=== PATIENT | male | born 1980 | race Caucasian/White ===

== ENCOUNTER 2017-08-22 05:24 | Day surgery (SDC) | payer BC ==
[2017-08-22] MEDS ORDERED: Midazolam 1 MG/ML 2 ML SDV IV ONE ×3 (05:25→06:40)
[2017-08-22] MEDS ORDERED: fentaNYL 100 MCG/2 ML SDV IV ONE ×3 (05:25→06:37)
[2017-08-22] MEDS ORDERED: Sodium Chloride 0.9% 10 ML Syringe FLUSH PRN (06:00)
[2017-08-22] MEDS ORDERED: Dextrose 5%-0.45% NaCl 1,000 ML IV SCH (06:00)
[2017-08-22] MEDS ORDERED: fentaNYL 100 MCG/2 ML SDV ONE (06:19)
[2017-08-22] MEDS ORDERED: Midazolam 1 MG/ML 2 ML SDV ONE (06:19)
--- NOTE | 2017-08-22 11:55 | OR ---
DATE: 08/22/2017 PROCEDURE: Esophagogastroduodenoscopy and multiple pinch biopsies. INSTRUMENT USED: GIF-H180 Olympus video panendoscope. PREMEDICATIONS: No oral topical anesthesia used. Fentanyl 100 mcg intravenous, Versed 2 mg intravenous. The procedure was done under pulse oximetry, BP recording, and quality assurance monitor chassis. INDICATION: The patient with persistent heartburn, and throat discomfort, unexplained, and not responsive to medical measures. Esophagogastroduodenoscopy is performed for detection of any active erosive lesions, malignancy also under consideration, to be looked for any evidence of esophageal candidiasis, endoscopic hemostasis therapy if needed. DESCRIPTION OF PROCEDURE: The scope was passed with ease. Adequate visualization of the esophagus was made from proximal to distal areas. No upper esophageal lesions identified. No distal esophageal stricture. No uphill or downhill esophageal varices, no Lavern-Hogan tear. No evidence of erosive esophagitis by [place] criteria. No esophageal polyp or tumor mass identified. Z-line was seen at around 39 cm distal to the oral verge, configuration consistent with grade 1 by ZAP classification. No proximal gastric varices noted. Gastric fundus examination by retroflexion showed no polypoid lesions. No gastric ulcer, malignant mass, or vascular ectasia identified. Duodenal bulb showed no ulcer. Visualized second part of the duodenum was unremarkable. Multiple pinch biopsies were taken from the gastric antrum and proximal body and sent for PyloriTek test for H. pylori, and if negative in an hour, other tissue is to be sent for histopathology. No bleeding was noted from any of the visualized areas at the completion of examination. Photographs were taken of the duodenal bulb, gastric antrum, fundus, and distal esophagus. IMPRESSION: Normal study. The patient tolerated the procedure well. [facility] /[id number]
[2017-08-22 13:08] VITALS: BP 120/76
== END 2017-08-22 08:54 | disposition home or self-care (01) ==
LOC: DL.ENDO 05:24
PROVIDERS: ATTEND Internal Medicine Gastroenterology
DX: R12 Heartburn (principal); E66.09 Other obesity due to excess calories; K21.9 Gastro-esophageal reflux disease without esophagitis; F41.1 Generalized anxiety disorder; L40.9 Psoriasis, unspecified; Z88.0 Allergy status to penicillin; Z88.1 Allergy status to other antibiotic agents; Z88.8 Allergy status to other drugs, medicaments and biological substances
CPT/HCPCS: 43239; 87077; J2250; J3010; J7042

== ENCOUNTER 2017-11-02 16:46 | Emergency (ER) | payer BC ==
--- NOTE | 2017-11-02 17:04 | EDM.PDOC ---
ED HPI GENERAL MEDICAL PROBLEM - General Chief Complaint: Lower Extremity Injury/Pain Stated Complaint: RT KNEE, ? INFECTION Time Seen by Provider: 11/02/17 16:50 Source of Information: Reports: Patient, RN, RN Notes Reviewed History Limitations: Reports: No Limitations - History of Present Illness INITIAL COMMENTS - FREE TEXT/NARRATIVE: Pt presents to the ER with c/o increased stiffness and pain in the right knee since yesterday. He states he has a history of psoriatic arthritis. He states he has been taking Stelara for the past few months, as well as has been restarted on Methotrexate. 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 He states he called his Rheumatology doctor at [facility] in [place] and was instructed to come to the ER. Onset: Gradual Onset Date: 11/01/17 Duration: Getting Worse Location: Reports: Lower Extremity, Right Quality: Reports: Ache, Other (stiff) Severity: Moderate Improves with: Reports: None Worsens with: Reports: None Associated Symptoms: Reports: No Other Symptoms Right Knee Pain Score (Numeric/FACES): 7 - Related Data Allergies Allergy/AdvReac Type Severity Reaction Status Date / Time capsaicin Allergy Hives Verified 11/02/17 16:54 cyclobenzaprine Allergy Hives Verified 11/02/17 16:54 [From Flexeril] diclofenac Allergy Hives Verified 11/02/17 16:54 Penicillins Allergy Rash Verified 11/02/17 16:54 Home Meds: Home Meds Amitriptyline [Elavil] 25 mg PO DAILY 08/20/17 [History] Multivitamin [Multi-Vitamin Daily] 1 tab PO DAILY 08/20/17 [History] Nystatin [Nystatin] 1 unit TOP ASDIRECTED 08/20/17 [History] Pantoprazole Sodium [Pantoprazole Sodium] 40 mg PO BID 08/20/17 [History] Folic Acid 1 mg PO DAILY 11/02/17 [History] Meloxicam 7.5 mg PO DAILY 11/02/17 [History] Methotrexate 2 oz PO WEEKLY 11/02/17 [History] Ustekinumab [Stelara] 1 injection IM ASDIRECTED 11/02/17 [History] Past Medical History HEENT History: Reports: Impaired Vision Cardiovascular History: Reports: None Respiratory History: Reports: Bronchitis, Recurrent Gastrointestinal History: Reports: GERD, Irritable Bowel Syndrome Genitourinary History: Reports: None Musculoskeletal History: Reports: Arthritis Other Musculoskeletal History: Trigger finger. Patellofemoral syndrome bilateral excessive Lateral pressure patella. Bilateral chronic knee pain Neurological History: Reports: None Psychiatric History: Reports: None Endocrine/Metabolic History: Reports: None Hematologic History: Reports: None Immunologic History: Reports: None, Other (See Below) Oncologic (Cancer) History: Reports: None Dermatologic History: Reports: Psoriasis Other Dermatologic History: rosacea - Infectious Disease History Infectious Disease History: Reports: None - Past Surgical History Head Surgeries/Procedures: Reports: None HEENT Surgical History: Reports: Adenoidectomy, Tonsillectomy Other HEENT Surgeries/Procedures: T&A Respiratory Surgical History: Reports: None GI Surgical History: Reports: Colonoscopy, EGD Male Surgical History: Reports: Vasectomy Other Male Surgeries/Procedures: Scrotal fistula repair x3. Vasectomy. Sperm granuloma. Chronic epididymitis Musculoskeletal Surgical History: Reports: Arthroscopic Procedure Other Musculoskeletal Surgeries/Procedures:: Hand finger trigger release. Left knee arthroscopy lateral retinacular. Social & Family History - Family History Family Medical History: Noncontributory - Tobacco Use Smoking Status *Q: Current Every Day Smoker Years of Tobacco use: 16 Packs/Tins Daily: 1 Used Tobacco, but Quit: No Second Hand Smoke Exposure: Yes - Caffeine Use Caffeine Use: Reports: Energy Drinks Other Caffeine Use: 2 cans - Alcohol Use Days Per Week of Alcohol Use: 0 - Recreational Drug Use Recreational Drug Use: No Review of Systems - Review of Systems Review Of Systems: ROS reveals no pertinent complaints other than HPI. ED EXAM, GENERAL - Physical Exam Exam: See Below Exam Limited By: No Limitations General Appearance: Alert, WD/WN, Moderate Distress Eye Exam: Bilateral Eye: EOMI, Normal Inspection, PERRL Ears: Normal External Exam, Hearing Grossly Normal Nose: Normal Inspection Throat/Mouth: Normal Inspection, Normal Voice, No Airway Compromise Head: Atraumatic, Normocephalic Neck: Normal Inspection, Supple, Non-Tender, Full Range of Motion Respiratory/Chest: No Respiratory Distress, Lungs Clear, Normal Breath Sounds, No Accessory Muscle Use, Chest Non-Tender Cardiovascular: Normal Peripheral Pulses, Regular Rate, Rhythm, No Edema, No Gallop, No JVD, No Murmur, No Rub Peripheral Pulses: 2+: Radial (L), Radial (R), Dorsalis Pedis (L), Dorsalis Pedis (R) GI/Abdominal: Normal Bowel Sounds, Soft, Non-Tender, No Distention, No Abnormal Bruit (Male) Exam: Deferred Rectal (Males) Exam: Deferred Back Exam: Normal Inspection, Full Range of Motion, NT Extremities: No Pedal Edema, Normal Capillary Refill, Leg Pain (right), Limited Range of Motion (right leg/knee), Other (swelling above right knee). No: Increased Warmth Neurological: Alert, Oriented, CN II-XII Intact, Normal Cognition, Normal Reflexes, No Motor/Sensory Deficits. No: Normal Gait Psychiatric: Normal Mood, Flat Affect Skin Exam: Warm, Dry, Intact, Normal Color, No Rash Lymphatic: No Adenopathy Course - Vital Signs Last Recorded V/S: Last Vital Signs Temp 98.2 F 11/02/17 17:05 Pulse 103 H 11/02/17 17:05 Resp 16 11/02/17 17:05 BP 150/87 H 11/02/17 17:05 Pulse Ox 100 11/02/17 17:05 - Orders/Labs/Meds Labs: Laboratory Tests 11/02/17 11/02/17 11/02/17 Range/Units 17:15 17:15 17:15 WBC 12.1 H (5.0-10.0) 10^3/uL RBC 4.69 (4.6-6.2) 10^6/uL Hgb 15.2 (14.0-18.0) g/dL Hct 42.8 (40.0-54.0) % MCV 91.3 (80-100) fL MCH 32.4 (27.0-34.0) pg MCHC 35.5 H (33.0-35.0) g/dL Plt Count 293 (150-450) 10^3/uL Neut % (Auto) 55.4 (42.2-75.2) % Lymph % (Auto) 33.5 (20.5-50.1) % [place] % (Auto) 9.2 H (2-8) % Eos % (Auto) 1.7 (1.0-3.0) % Baso % (Auto) 0.2 (0.0-1.0) % ESR 14 (0-15) mm/hr Sodium 136 (135-145) mmol/L Potassium 3.9 (3.6-5.0) mmol/L Chloride 105 (101-111) mmol/L Carbon Dioxide 23.0 (21.0-31.0) mmol/L Anion Gap 11.9 BUN 12 (7-18) mg/dL Creatinine 1.0 (0.6-1.3) mg/dL Est Cr Clr Drug Dosing 97.85 mL/min Estimated GFR (MDRD) > 60 BUN/Creatinine Ratio 12.00 Glucose 77 (74-105) mg/dL Calcium 8.7 (8.4-10.2) mg/dl Total Bilirubin 0.3 (0.2-1.0) mg/dL AST 33 (10-42) IU/L ALT 52 (10-60) IU/L Alkaline Phosphatase 54 (42-121) IU/L C-Reactive Protein < 0.5 (0.0-1.3) mg/dL Total Protein 6.8 (6.7-8.2) g/dl Albumin 3.4 (3.2-5.5) g/dl Globulin 3.4 Albumin/Globulin Ratio 1.00 Departure - Departure Time of Disposition: 18:10 Disposition: Home, Self-Care 01 Condition: Fair Clinical Impression: Psoriatic arthritis Knee pain, acute Qualifiers: Laterality: right Qualified Code(s): M25.561 - Pain in right knee - Discharge Information Instructions: Muscle Strain, [id number]-[id number], Joint Pain, Ioox-of-Yedx, Knee Pain , [id number] Forms: ED Department Discharge Additional Instructions: RX: Dwight Follow up with Rheumatology on Sunday Elevate, rest, passive movement exercises, ice
[2017-11-02 17:10] VITALS: BP 150/87
[2017-11-02 17:39] LABS: CHLORIDE,CL 105 mmol/L (101-111); SODIUM,NA 136 mmol/L (135-145)
== END 2017-11-02 18:34 | disposition home or self-care (01) ==
LOC: DL.ED 16:46
DX: L40.50 Arthropathic psoriasis, unspecified (principal); M25.561 Pain in right knee; F17.210 Nicotine dependence, cigarettes, uncomplicated; Z88.8 Allergy status to other drugs, medicaments and biological substances; Z88.0 Allergy status to penicillin; Z79.899 Other long term (current) drug therapy
CPT/HCPCS: 36415; 80053; 85025; 85651; 86140; 99282

== ENCOUNTER 2020-08-21 12:37 | Emergency (ER) | payer BC ==
[2020-08-21 12:59] VITALS: BP 149/96; PULSE 99
[2020-08-21 14:52] LABS: ANION GAP 11.2 mEq/L (7-13); CHLORIDE,CL 100 mmol/L (98-107); SODIUM,NA 136 mmol/L (136-145)
--- NOTE | 2020-08-21 14:59 | EDM.PDOC ---
ED HPI GENERAL MEDICAL PROBLEM - General Chief Complaint: ENT Problem Stated Complaint: THROAT PROBLEMS SWOLLEN WHITE BLOODY Time Seen by Provider: 08/21/20 13:50 Source of Information: Reports: Patient History Limitations: Reports: No Limitations - History of Present Illness INITIAL COMMENTS - FREE TEXT/NARRATIVE: Patient presents to the ER with complaint of throat pain that began 2 weeks ago. The pain is mostly in the throat, some on tongue/palate. Razor bladers feeling--some burning sensation. It is worst at night that it wakes him up. His throat is dry. It hurts to suck on a cigarette, smokes 1 pack per day. He was begun on Taltz that was begun 5 months ago. He was started on steroids and Z- Pack on Sunday and it is getting worse. He has body aches always but worse lately. Decreased appetite. No fever, chills, nausea, vomiting an diarrhea. Onset: Gradual Duration: Getting Worse Location: Reports: Other (throat) Quality: Reports: Ache Severity: Severe Improves with: Reports: None Worsens with: Reports: None Associated Symptoms: Reports: No Other Symptoms Throat Pain Score (Numeric/FACES): 6 - Related Data Allergies Allergy/AdvReac Type Severity Reaction Status Date / Time capsaicin Allergy Hives Verified 11/02/17 16:54 cyclobenzaprine Allergy Hives Verified 11/02/17 16:54 [From Flexeril] diclofenac Allergy Hives Verified 11/02/17 16:54 Penicillins Allergy Rash Verified 11/02/17 16:54 Home Meds: Home Meds Amitriptyline [Elavil] 50 mg PO DAILY 08/20/17 [History] Pantoprazole Sodium 40 mg PO BID 08/20/17 [History] Folic Acid 1 mg PO DAILY 11/02/17 [History] Methotrexate 7 tab PO WEEKLY 11/02/17 [History] Ixekizumab [Taltz Autoinjector (2 Pack)] 80 mg PO ASDIRECTED 08/21/20 [History] oxyCODONE HCl/Acetaminophen [Endocet 10-325 mg Tablet] 1 tab PO Q6H PRN 08/21/20 [History] Past Medical History HEENT History: Reports: Impaired Vision Cardiovascular History: Reports: None Respiratory History: Reports: Bronchitis, Recurrent Gastrointestinal History: Reports: GERD, Irritable Bowel Syndrome Genitourinary History: Reports: None Musculoskeletal History: Reports: Arthritis, Other (See Below) Other Musculoskeletal History: Trigger finger. Patellofemoral syndrome bilateral excessive Lateral pressure patella. Bilateral chronic knee pain. psoriatic arthritis Neurological History: Reports: None Psychiatric History: Reports: None Endocrine/Metabolic History: Reports: None Hematologic History: Reports: None Immunologic History: Reports: None, Other (See Below) Oncologic (Cancer) History: Reports: None Dermatologic History: Reports: Psoriasis Other Dermatologic History: rosacea - Infectious Disease History Infectious Disease History: Reports: None - Past Surgical History Head Surgeries/Procedures: Reports: None HEENT Surgical History: Reports: Adenoidectomy, Tonsillectomy Other HEENT Surgeries/Procedures: T&A Respiratory Surgical History: Reports: None GI Surgical History: Reports: Colonoscopy, EGD Male Surgical History: Reports: Vasectomy Other Male Surgeries/Procedures: Scrotal fistula repair x3. Vasectomy. Sperm granuloma. Chronic epididymitis Musculoskeletal Surgical History: Reports: Arthroscopic Procedure Other Musculoskeletal Surgeries/Procedures:: Hand finger trigger release. Left knee arthroscopy lateral retinacular. Social & Family History - Family History Family Medical History: No Pertinent Family History - Tobacco Use Tobacco Use Status *Q: Current Every Day Tobacco User Years of Tobacco use: 20 Packs/Tins Daily: 1 - Caffeine Use Caffeine Use: Reports: Energy Drinks Other Caffeine Use: 2 cans - Recreational Drug Use Recreational Drug Use: No ED ROS ENT - Review of Systems Review Of Systems: Comprehensive ROS is negative, except as noted in HPI. ED EXAM, ENT - Physical Exam Exam: See Below Exam Limited By: No Limitations General Appearance: Alert, WD/WN, No Apparent Distress Eye Exam: Bilateral Eye: EOMI, Normal Inspection, PERRL Ears: Normal External Exam, Normal Canal, Hearing Grossly Normal, Normal TMs Nose: Normal Inspection, Normal Mucousa, No Blood Mouth/Throat: Other (beefy red uvula/white with white uvula. Geographic tongue. ) Head: Atraumatic, Normocephalic Neck: Normal Inspection, Supple, Non-Tender, Full Range of Motion Respiratory/Chest: No Respiratory Distress, Lungs Clear, Normal Breath Sounds, No Accessory Muscle Use, Chest Non-Tender Cardiovascular: Normal Peripheral Pulses, Regular Rate, Rhythm, No Edema, No Gallop, No JVD, No Murmur, No Rub GI/Abdominal: Normal Bowel Sounds, Soft, Non-Tender, No Organomegaly, No Distention, No Abnormal Bruit, No Mass (Male) Exam: Deferred Rectal (Males) Exam: Deferred Back: Normal Inspection, Full Range of Motion Extremities: Normal Inspection, Normal Range of Motion, Non-Tender, No Pedal Edema, Normal Capillary Refill Neurological: Alert, Oriented, CN II-XII Intact, Normal Cognition, Normal Gait, Normal Reflexes, No Motor/Sensory Deficits Psychiatric: Normal Affect, Normal Mood Skin: Warm, Dry, Intact, Normal Color, No Rash Lymphatic: No Adenopathy Course - Vital Signs Last Recorded V/S: Last Vital Signs Temp 97.9 F 08/21/20 12:54 Pulse 99 08/21/20 12:54 Resp 16 08/21/20 12:54 BP 149/96 H 08/21/20 12:54 Pulse Ox 100 08/21/20 12:54 - Orders/Labs/Meds Orders: Active Orders 24 hr Category Date Time Status COMPREHENSIVE METABOLIC PN,CMP [CHEM] Stat Lab 08/21/20 13:31 Results CULTURE STREP A CONFIRMATION [RM] Stat Lab 08/21/20 12:51 Results FOLIC ACID [CHEM] Stat Lab 08/21/20 13:31 Results STREP SCRN A RAPID W CULT CONF [RM] Stat Lab 08/21/20 12:51 Results VITAMIN B12 [CHEM] Stat Lab 08/21/20 13:31 Results Labs: Laboratory Tests 08/21/20 08/21/20 08/21/20 Range/Units 13:31 13:31 13:31 WBC 12.2 H (5.0-10.0) 10^3/uL RBC 4.96 (4.6-6.2) 10^6/uL Hgb 16.6 (14.0-18.0) g/dL Hct 47.3 (40.0-54.0) % MCV 95.4 D (80-100) fL MCH 33.5 (27.0-34.0) pg MCHC 35.1 H (33.0-35.0) g/dL Plt Count 339 (150-450) 10^3/uL Neut % (Auto) 70.7 (42.2-75.2) % Lymph % (Auto) 22.1 (20.5-50.1) % [place] % (Auto) 6.7 (2-8) % Eos % (Auto) 0.3 L (1.0-3.0) % Baso % (Auto) 0.2 (0.0-1.0) % Sodium 136 (136-145) mmol/L Potassium 4.2 (3.5-5.1) mmol/L Chloride 100 (98-107) mmol/L Carbon Dioxide 29 (21-32) mmol/L Anion Gap 11.2 (7-13) mEq/L BUN 11 (7-18) mg/dL Creatinine 0.98 (0.70-1.30) mg/dL Est Cr Clr Drug Dosing 96.94 mL/min Estimated GFR (MDRD) > 60 BUN/Creatinine Ratio 11.2 (No establ ref range) Glucose 91 (74-99) mg/dL Calcium 9.3 (8.5-10.1) mg/dL Iron 178 H (65-175) ug/dL TIBC 480 H (250-450) ug/dL % Saturation 37.1 (20.0-50.0) % Total Bilirubin 0.3 (0.2-1.0) mg/dL AST 18 (15-37) U/L ALT 66 H (16-63) U/L Alkaline Phosphatase 76 (46-116) U/L Total Protein 7.3 (6.4-8.2) g/dL Albumin 3.3 L (3.4-5.0) g/dL Globulin 4.0 Albumin/Globulin Ratio 0.83 Vitamin B12 1074 H (193-986) pg/mL Departure - Departure Time of Disposition: 14:58 Disposition: Home, Self-Care 01 Condition: Fair Clinical Impression: Xerostomia, Oral candidiasis - Discharge Information *PRESCRIPTION DRUG MONITORING PROGRAM REVIEWED*: No *COPY OF PRESCRIPTION DRUG MONITORING REPORT IN PATIENT JESSICA: No Instructions: Oral Thrush, Adult, [id number] Forms: ED Department Discharge Additional Instructions: Rx: Nystatin, swish gargle and swallow 4 times daily for 10 days Diflucan take as directed Drink plenty of water Try to stop smoking Follow-up with your primary care provider next week Return to the ER with any worsening of symptoms Sepsis Event Note (ED) - Evaluation Sepsis Screening Result: No Definite Risk - Focused Exam Vital Signs: Vital Signs Temp Pulse Resp BP Pulse Ox 08/21/20 12:54 97.9 F 99 16 149/96 H 100 - My Orders Last 24 Hours: My Active Orders 08/21/20 12:51 CULTURE STREP A CONFIRMATION [RM] Stat STREP SCRN A RAPID W CULT CONF [RM] Stat 08/21/20 13:31 COMPREHENSIVE METABOLIC PN,CMP [CHEM] Stat FOLIC ACID [CHEM] Stat VITAMIN B12 [CHEM] Stat - Assessment/Plan Last 24 Hours: My Active Orders 08/21/20 12:51 CULTURE STREP A CONFIRMATION [RM] Stat STREP SCRN A RAPID W CULT CONF [RM] Stat 08/21/20 13:31 COMPREHENSIVE METABOLIC PN,CMP [CHEM] Stat FOLIC ACID [CHEM] Stat VITAMIN B12 [CHEM] Stat
== END 2020-08-21 15:16 | disposition home or self-care (01) ==
LOC: DL.ED 12:37
DX: K11.7 Disturbances of salivary secretion (principal); B37.0 Candidal stomatitis; K21.9 Gastro-esophageal reflux disease without esophagitis; F17.210 Nicotine dependence, cigarettes, uncomplicated; Z90.49 Acquired absence of other specified parts of digestive tract; Z88.0 Allergy status to penicillin; Z88.8 Allergy status to other drugs, medicaments and biological substances; Z79.899 Other long term (current) drug therapy
CPT/HCPCS: 36415; 80053; 82607; 82746; 83540; 83550; 85025; 87081; 87430; 99283

== ENCOUNTER 2020-11-12 05:50 | Day surgery (SDC) | payer BC ==
[~2020-11-12 05:50] MED LIST: Sodium Chloride 0.9% 10 ML Syringe FLUSH PRN
[2020-11-12] MEDS ORDERED: fentaNYL 100 MCG/2 ML SDV IV ONE ×3 (05:51→07:00)
[2020-11-12] MEDS ORDERED: Midazolam 1 MG/ML 2 ML SDV IV ONE ×3 (05:51→07:01)
[2020-11-12] MEDS ORDERED: Dextrose 5%-0.45% NaCl 1,000 ML IV SCH (06:00)
[2020-11-12] MEDS ORDERED: Midazolam 1 MG/ML 2 ML SDV ONE (06:22)
[2020-11-12] MEDS ORDERED: fentaNYL 100 MCG/2 ML SDV ONE (06:22)
--- NOTE | 2020-11-12 07:46 | OR ---
DATE: 11/12/2020 PROCEDURES: Esophagogastroduodenoscopy and multiple pinch biopsies. INSTRUMENT USED: GIF-HQ190 Olympus video panendoscope. PREMEDICATIONS: No oral or topical anesthesia used. Fentanyl 100 mcg intravenous, Versed 2 mg intravenous. The procedure was done under pulse oximetry, BP recording, and telemetry monitor. INDICATION: The patient with persistent sore throat, heartburn, as well as dyspepsia, unexplained and not responsive to medical measures, on PPI. Esophagogastroduodenoscopy is performed for detection of any active erosive lesions, Leigh esophagus and/or malignancy also under consideration, H pylori status to be determined, esophageal biopsies to be obtained for any evidence of esophageal eosinophilia, endoscopic hemostasis therapy if needed. PROCEDURE IN DETAIL: The scope was passed with ease. Adequate visualization of the esophagus was made from proximal to distal areas. No upper esophageal lesions identified. No distal esophageal stricture. No uphill or downhill esophageal varices. No Lavern-Hogan tear. No evidence of erosive esophagitis by [place] criteria. No esophageal polyp or tumor mass identified. Z-line was seen at around 39 cm distal to the oral verge, configuration consistent with grade 1 by ZAP classification. No proximal gastric varices noted. Gastric fundus examination by retroflexion showed multiple diminutive benign-appearing polyps. No gastric ulcer, malignant mass, or vascular ectasia identified. Duodenal bulb showed no ulcer. Visualized second part of the duodenum was unremarkable. Multiple pinch biopsies were taken from the gastric antrum and proximal body and sent for PyloriTek test for H pylori and histopathology. Four- quadrant biopsies were taken from the distal and proximal esophagus and sent for any histopathologic evidence of esophageal eosinophilia. No bleeding was noted from any of the visualized areas at the completion of the examination. Photographs were taken of duodenal bulb, gastric antrum, fundus, and distal esophagus. IMPRESSION: Diminutive gastric fundus polyps. The patient tolerated the procedure well. [facility] /[id number]
--- NOTE | 2020-11-12 08:40 | LETTER ---
11/12/2020 Anabelle Stroud MD Infectious Disease Services [address] [address] RE: CHRISTO SIM : [address] Stroud: Mr. Christo Sim had esophagogastroduodenoscopy done this morning and he tolerated the procedure well. I herewith send a copy of the endoscopy note and photographs for your review. Thank you. Sincerely, [facility] /[id number]
[2020-11-12 09:25] VITALS: BP 117/88; PULSE 81
== END 2020-11-12 09:15 | disposition home or self-care (01) ==
LOC: DL.ENDO 05:50
PROVIDERS: ATTEND Internal Medicine Gastroenterology
DX: K31.7 Polyp of stomach and duodenum (principal); E66.09 Other obesity due to excess calories; K21.9 Gastro-esophageal reflux disease without esophagitis; K58.9 Irritable bowel syndrome, unspecified; L40.9 Psoriasis, unspecified; Z68.35 Body mass index [BMI] 35.0-35.9, adult
CPT/HCPCS: 43239; 87077; J2250; J3010; J7042

== ENCOUNTER 2020-12-29 08:49 | Emergency (ER) | payer BC ==
[2020-12-29 09:20] VITALS: BP 122/76; PULSE 102
--- NOTE | 2020-12-29 09:21 | EDM.PDOC ---
ED HPI GENERAL MEDICAL PROBLEM - General Chief Complaint: Abdominal Pain Stated Complaint: PAIN UPPER RIGHT CHEST Time Seen by Provider: 12/29/20 09:19 Source of Information: Reports: Patient, Old Records, RN, RN Notes Reviewed History Limitations: Reports: No Limitations - History of Present Illness INITIAL COMMENTS - FREE TEXT/NARRATIVE: Patient presents to the ED via personal vehicle with complaints of RUQ pain. The patient reports a history of chronic abdominal pain with diagnosed IBS for which he follows with Dr. Helm in gastroenterology at [facility] in [place]. He reports he has been experiencing RUQ abdominal pain for about four months and has been doctoring with GI. He underwent a EGD in November via Dr. Helm which revealed gastric fundus polyps; no evidence of esophageal/gastric/duodenal ulcerations, lesions, edema, or irritation. H. Pylori biopsies taken during EGD; results have come back as negative. Patient is currently taking Nexium BID and Pepcid AC with meals. He states he has had a decreased appetite since this pain worsened six days ago and has only eaten an occasional saltine cracker during this time; he continues to drink water and take his PPI/antacid medications. He has not taken any additional medications for this pain. He denies fever, shaking chills, recent illness, palpitations, nausea, vomiting, diarrhea, constipation, dysuria, hematuria, melena, or hematochezia. He attests to smoking 1/4 pack of cigarettes per day; he denies alcohol or recreational drug use. The patient states he has an appointment with gastroenterology at [facility] in [place] on January 18 for a second opinion regarding ongoing management of chronic abdominal pain. He expresses concern regarding the amount of time until his appointment and would like to get into a specialist sooner. - Related Data Allergies Allergy/AdvReac Type Severity Reaction Status Date / Time capsaicin Allergy Hives Verified 12/29/20 09:04 cyclobenzaprine Allergy Hives Verified 12/29/20 09:04 [From Flexeril] diclofenac Allergy Hives Verified 12/29/20 09:04 Penicillins Allergy Rash Verified 12/29/20 09:04 Home Meds: Home Meds Amitriptyline [Elavil] 50 mg PO BEDTIME 08/20/17 [History] Folic Acid 1 mg PO DAILY 11/02/17 [History] Methotrexate 20 mg PO WEEKLY 11/02/17 [History] Ixekizumab [Taltz Autoinjector (2 Pack)] 80 mg PO .Q4WKS 08/21/20 [History] Acetaminophen [Tylenol Extra Strength] 1,000 mg PO Q6H 11/11/20 [History] Multivitamin 1 tab PO BID 11/11/20 [History] Esomeprazole [NexIUM] 40 mg PO BID 12/29/20 [History] L.acidoph,Paracasei, B.lactis [Probiotic] 1 cap PO BID 12/29/20 [History] oxyCODONE HCl/Acetaminophen [Endocet 10-325 mg Tablet] 1 each PO ASDIRECTED PRN 12/29/20 [History] Past Medical History HEENT History: Reports: Impaired Vision Cardiovascular History: Reports: None Respiratory History: Reports: Bronchitis, Recurrent Gastrointestinal History: Reports: GERD, Irritable Bowel Syndrome Genitourinary History: Reports: None Musculoskeletal History: Reports: Arthritis, Other (See Below) Other Musculoskeletal History: Trigger finger. Patellofemoral syndrome bilateral excessive Lateral pressure patella. Bilateral chronic knee pain. psoriatic arthritis Neurological History: Reports: None Psychiatric History: Reports: None Endocrine/Metabolic History: Reports: None Hematologic History: Reports: None Immunologic History: Reports: Other (See Below) Other Immunologic History: psoriatic psoriasis Oncologic (Cancer) History: Reports: None Dermatologic History: Reports: Psoriasis Other Dermatologic History: rosacea - Infectious Disease History Infectious Disease History: Reports: None - Past Surgical History Head Surgeries/Procedures: Reports: None HEENT Surgical History: Reports: Adenoidectomy, Tonsillectomy Cardiovascular Surgical History: Reports: None Respiratory Surgical History: Reports: None GI Surgical History: Reports: Colonoscopy, EGD Male Surgical History: Reports: Vasectomy Other Male Surgeries/Procedures: Scrotal fistula repair x3. Vasectomy. Sperm granuloma. Chronic epididymitis Neurological Surgical History: Reports: None Musculoskeletal Surgical History: Reports: Arthroscopic Procedure Other Musculoskeletal Surgeries/Procedures:: Hand finger trigger release. Left knee arthroscopy lateral retinacular. Social & Family History - Family History Family Medical History: No Pertinent Family History - Caffeine Use Caffeine Use: Reports: Coffee, Energy Drinks Other Caffeine Use: 2 cans ED ROS GENERAL - Review of Systems Review Of Systems: Comprehensive ROS is negative, except as noted in HPI. ED EXAM, GI/ABD - Physical Exam Exam: See Below Exam Limited By: No Limitations General Appearance: Alert, No Apparent Distress Eyes: Bilateral: Normal Appearance, EOMI Ears: Normal External Exam, Normal Canal, Hearing Grossly Normal, Normal TMs Nose: Other (Erythema d/t rosacea) Course - Vital Signs Last Recorded V/S: Last Vital Signs Temp 98.8 F 12/29/20 09:10 Pulse 102 H 12/29/20 09:10 Resp 22 H 12/29/20 09:10 BP 122/76 12/29/20 09:10 Pulse Ox 100 12/29/20 09:10 - Orders/Labs/Meds Labs: Laboratory Tests 12/29/20 12/29/20 12/29/20 Range/Units 09:07 09:07 09:07 WBC 9.7 (5.0-10.0) 10^3/uL RBC 4.90 (4.6-6.2) 10^6/uL Hgb 15.9 (14.0-18.0) g/dL Hct 45.5 (40.0-54.0) % MCV 92.9 (80-100) fL MCH 32.4 (27.0-34.0) pg MCHC 34.9 (33.0-35.0) g/dL Plt Count 311 (150-450) 10^3/uL Neut % (Auto) 76.0 H (42.2-75.2) % Lymph % (Auto) 15.4 L (20.5-50.1) % Rogers % (Auto) 7.5 (2-8) % Eos % (Auto) 0.8 L (1.0-3.0) % Baso % (Auto) 0.3 (0.0-1.0) % Sodium 140 (136-145) mmol/L Potassium 3.7 (3.5-5.1) mmol/L Chloride 103 (98-107) mmol/L Carbon Dioxide 27 (21-32) mmol/L Anion Gap 13.7 H (7-13) mEq/L BUN 10 (7-18) mg/dL Creatinine 1.03 (0.70-1.30) mg/dL Est Cr Clr Drug Dosing 91.31 mL/min Estimated GFR (MDRD) > 60 BUN/Creatinine Ratio 9.7 (No establ ref range) Glucose 102 H (70-99) mg/dL Lactic Acid 1.3 (0.4-2.0) mmol/L Calcium 8.3 L (8.5-10.1) mg/dL Total Bilirubin 0.3 (0.2-1.0) mg/dL AST 26 (15-37) U/L ALT 62 (16-63) U/L Alkaline Phosphatase 74 (46-116) U/L C-Reactive Protein < 0.2 (0.0-0.9) mg/dL Total Protein 6.9 (6.4-8.2) g/dL Albumin 2.9 L (3.4-5.0) g/dL Globulin 4.0 Albumin/Globulin Ratio 0.73 Amylase 21 L (25-115) U/L Lipase 69 L (73-393) U/L Urine Color (YELLOW) Urine Appearance (CLEAR) Urine pH (5.0-9.0) Ur Specific Midway (1.005-1.030) Urine Protein (NEGATIVE) Urine Glucose (UA) (NEGATIVE) Urine Ketones (NEGATIVE) Urine Occult Blood (NEGATIVE) Urine Nitrite (NEGATIVE) Urine Bilirubin (NEGATIVE) Urine Urobilinogen (0.2-1.0) mg/dL Ur Leukocyte Esterase (NEGATIVE) Urine RBC /HPF Urine WBC (0-5/HPF) /HPF 12/29/20 Range/Units 10:18 WBC (5.0-10.0) 10^3/uL RBC (4.6-6.2) 10^6/uL Hgb (14.0-18.0) g/dL Hct (40.0-54.0) % MCV (80-100) fL MCH (27.0-34.0) pg MCHC (33.0-35.0) g/dL Plt Count (150-450) 10^3/uL Neut % (Auto) (42.2-75.2) % Lymph % (Auto) (20.5-50.1) % Rogers % (Auto) (2-8) % Eos % (Auto) (1.0-3.0) % Baso % (Auto) (0.0-1.0) % Sodium (136-145) mmol/L Potassium (3.5-5.1) mmol/L Chloride (98-107) mmol/L Carbon Dioxide (21-32) mmol/L Anion Gap (7-13) mEq/L BUN (7-18) mg/dL Creatinine (0.70-1.30) mg/dL Est Cr Clr Drug Dosing mL/min Estimated GFR (MDRD) BUN/Creatinine Ratio (No establ ref range) Glucose (70-99) mg/dL Lactic Acid (0.4-2.0) mmol/L Calcium (8.5-10.1) mg/dL Total Bilirubin (0.2-1.0) mg/dL AST (15-37) U/L ALT (16-63) U/L Alkaline Phosphatase (46-116) U/L C-Reactive Protein (0.0-0.9) mg/dL Total Protein (6.4-8.2) g/dL Albumin (3.4-5.0) g/dL Globulin Albumin/Globulin Ratio Amylase (25-115) U/L Lipase (73-393) U/L Urine Color Yellow (YELLOW) Urine Appearance Clear (CLEAR) Urine pH 7.5 (5.0-9.0) Ur Specific [place]way 1.015 (1.005-1.030) Urine Protein Negative (NEGATIVE) Urine Glucose (UA) Negative (NEGATIVE) Urine Ketones Negative (NEGATIVE) Urine Occult Blood Trace-intact H (NEGATIVE) Urine Nitrite Negative (NEGATIVE) Urine Bilirubin Negative (NEGATIVE) Urine Urobilinogen 0.2 (0.2-1.0) mg/dL Ur Leukocyte Esterase Negative (NEGATIVE) Urine RBC 0-5 /HPF Urine WBC 0-5 (0-5/HPF) /HPF - Re-Assessments/Exams Free Text/Narrative Re-Assessment/Exam: 12/29/20 CBC unremarkable for acute processes; no evidence of infection or anemia. CMP unremarkable; no electrolyte disturbances, kidney function, and liver function appropriate. Amylase and Lipase WNL. UA unremarkable. Patient questions ability to transfer referral to [facility] as he can obtain a GI consult sooner; discussed ability to see GI at any facility as referral is broad. Findings of examination and lab work reviewed with patient. Patient states he will attempt to see GI at [facility] for management of chronic health condition. Red flag signs and symptoms which would warrant reevaluation discussed. Patient verbalized understanding and agreement with the plan of care. Departure - Departure Time of Disposition: 10:59 Disposition: Home, Self-Care 01 Condition: Good Clinical Impression: Right upper quadrant abdominal pain, Nausea - Discharge Information *PRESCRIPTION DRUG MONITORING PROGRAM REVIEWED*: Not Applicable *COPY OF PRESCRIPTION DRUG MONITORING REPORT IN PATIENT JESSICA: Not Applicable Instructions: Abdominal Pain, Adult, [id number] Referrals: PCP,None [Primary Care Provider] - Forms: ED Department Discharge Additional Instructions: 1.) Follow up with gastroenterology, as previously scheduled. You may reach out to other facilities for gastroenterology referral if there is a provider you would rather see or they have a sooner appointment. 2.) Try eating a bland diet, even small snack-like meals may help. Protein shakes may also be a reasonable substitute. 3.) Continue drinking plenty of water to keep hydrated. 4.) Follow up with your primary care provider, or return to the emergency department, with and fever, shaking chills, persistent vomiting, or abdominal pain that does not improve. Sepsis Event Note (ED) - Focused Exam Vital Signs: Vital Signs Temp Pulse Resp BP Pulse Ox 12/29/20 09:10 98.8 F 102 H 22 H 122/76 100
[2020-12-29 09:38] LABS: ANION GAP 13.7 mEq/L (7-13); CHLORIDE,CL 103 mmol/L (98-107); SODIUM,NA 140 mmol/L (136-145)
== END 2020-12-29 11:16 | disposition home or self-care (01) ==
LOC: DL.ED 08:49
DX: R10.11 Right upper quadrant pain (principal); R11.2 Nausea with vomiting, unspecified; K21.9 Gastro-esophageal reflux disease without esophagitis; Z79.899 Other long term (current) drug therapy; Z88.0 Allergy status to penicillin; Z91.018 Allergy to other foods; Z88.8 Allergy status to other drugs, medicaments and biological substances; Z88.6 Allergy status to analgesic agent
CPT/HCPCS: 36415; 80053; 81001; 82150; 83605; 83690; 85025; 86140; 99283; 99284

== ENCOUNTER 2021-06-07 16:40 | Emergency (ER) | payer BC ==
[2021-06-07 17:16] VITALS: BP 137/99; PULSE 103
== END 2021-06-07 17:19 | disposition left against medical advice (07) ==
LOC: DL.ED 16:40
DX: Z53.21 Procedure and treatment not carried out due to patient leaving prior to being seen by health care provider (principal)

== ENCOUNTER 2021-10-24 06:02 | Day surgery (SDC) | payer BC ==
[~2021-10-24 06:02] MED LIST changes: +Dextrose 5%-0.45% NaCl 1,000 ML IV SCH; +Midazolam 1 MG/ML 2 ML SDV ONE; +Sodium Chloride 0.9% 10 ML Syringe FLUSH SCH; +fentaNYL 100 MCG/2 ML SDV ONE
[2021-10-24] MEDS ORDERED: Midazolam 1 MG/ML 2 ML SDV IV ONE ×5 (06:03→07:14)
[2021-10-24] MEDS ORDERED: fentaNYL 100 MCG/2 ML SDV IV ONE ×3 (06:03→07:11)
[2021-10-24] MEDS ORDERED: Midazolam 1 MG/ML 2 ML SDV ONE (07:32)
[2021-10-24 09:44] VITALS: BP 125/69; PULSE 78
== END 2021-10-24 09:30 | disposition home or self-care (01) ==
LOC: DL.ENDO 06:02
PROVIDERS: ATTEND Internal Medicine Gastroenterology
DX: R13.10 Dysphagia, unspecified (principal); R10.13 Epigastric pain; K21.9 Gastro-esophageal reflux disease without esophagitis; K58.9 Irritable bowel syndrome, unspecified; F41.1 Generalized anxiety disorder; L40.9 Psoriasis, unspecified; E66.09 Other obesity due to excess calories; Z68.31 Body mass index [BMI] 31.0-31.9, adult
CPT/HCPCS: 43239; 87077; J2250; J3010; J7042

== ENCOUNTER 2022-01-21 11:42 | Emergency (ER) | payer BC ==
[2022-01-21] MEDS ORDERED: Sodium Chloride 0.9% 10 ML Syringe FLUSH PRN (12:28)
[2022-01-21 12:44] VITALS: BP 110/81; PULSE 85
[2022-01-21] MEDS ORDERED: Iopamidol 612 MG/ML 100 ML Bottle IVPUSH ONE (13:04)
[2022-01-21 13:25] LABS: CHLORIDE,CL 103 mmol/L (98-107); SODIUM,NA 139 mmol/L (136-145)
[2022-01-21] MEDS ORDERED: HYDROmorphone 0.5 MG/0.5 ML Syringe IVPUSH ONE (14:59)
== END 2022-01-21 15:40 | disposition home or self-care (01) ==
LOC: DL.ED 11:42
DX: G83.4 Cauda equina syndrome (principal); K21.9 Gastro-esophageal reflux disease without esophagitis; Z79.899 Other long term (current) drug therapy; Z91.018 Allergy to other foods; Z88.0 Allergy status to penicillin; Z88.2 Allergy status to sulfonamides; Z88.6 Allergy status to analgesic agent
CPT/HCPCS: 36415; 70470; 72131; 80053; 81003; 83605; 83615; 83735; 84145; 85025; 86140; 87040; 96374; 99284; J1170; J3490; Q9967

== ENCOUNTER 2024-01-21 05:21 | Day surgery (SDC) | payer OTHER, BC ==
[2024-01-21] MEDS ORDERED: fentaNYL 100 MCG/2 ML SDV IV ONE (05:22)
[2024-01-21] MEDS ORDERED: Midazolam 1 MG/ML 2 ML SDV IV ONE (05:22)
[2024-01-21] MEDS: Dextrose 5%-0.45% NaCl 1,000 ML IV SCH (05:38)
[2024-01-21] MEDS ORDERED: fentaNYL 100 MCG/2 ML SDV ONE (06:08)
[2024-01-21] MEDS ORDERED: Midazolam 1 MG/ML 2 ML SDV ONE ×2 (06:08→06:57)
[2024-01-21] MEDS: fentaNYL 100 MCG/2 ML SDV IV ONE ×2 (06:33→06:34)
[2024-01-21] MEDS: Midazolam 1 MG/ML 2 ML SDV IV ONE ×4 (06:34→06:38)
[2024-01-21 08:11] VITALS: BP 116/74; PULSE 80
== END 2024-01-21 08:00 | disposition home or self-care (01) ==
LOC: DL.ENDO 05:21
PROVIDERS: ATTEND Internal Medicine Gastroenterology
DX: K21.00 Gastro-esophageal reflux disease with esophagitis, without bleeding (principal); K31.89 Other diseases of stomach and duodenum; R13.10 Dysphagia, unspecified; E66.09 Other obesity due to excess calories; F41.1 Generalized anxiety disorder; K58.9 Irritable bowel syndrome, unspecified; F32.A Depression, unspecified; F17.200 Nicotine dependence, unspecified, uncomplicated; Z68.36 Body mass index [BMI] 36.0-36.9, adult; Z79.2 Long term (current) use of antibiotics; Z79.899 Other long term (current) drug therapy
CPT/HCPCS: 87077; J2250; J3010; J7042

== ENCOUNTER 2024-02-14 05:54 | Day surgery (SDC) | payer OTHER, BC ==
[~2024-02-14 05:54] MED LIST changes: -Midazolam 1 MG/ML 2 ML SDV ONE; -fentaNYL 100 MCG/2 ML SDV ONE
[2024-02-14] MEDS ORDERED: Midazolam 1 MG/ML 2 ML SDV IV ONE (05:55)
[2024-02-14] MEDS ORDERED: fentaNYL 100 MCG/2 ML SDV IV ONE (05:55)
[2024-02-14] MEDS: Dextrose 5%-0.45% NaCl 1,000 ML IV SCH (06:15)
[2024-02-14] MEDS ORDERED: Midazolam 1 MG/ML 2 ML SDV ONE (06:15)
[2024-02-14] MEDS ORDERED: fentaNYL 100 MCG/2 ML SDV ONE (06:15)
[2024-02-14] MEDS: fentaNYL 100 MCG/2 ML SDV IV ONE ×5 (06:56→07:12)
[2024-02-14] MEDS: Midazolam 1 MG/ML 2 ML SDV IV ONE ×6 (06:57→07:08)
[2024-02-14 08:48] VITALS: BP 122/67; PULSE 82
== END 2024-02-14 08:56 | disposition home or self-care (01) ==
LOC: DL.ENDO 05:54
PROVIDERS: ATTEND Internal Medicine Gastroenterology
DX: D12.8 Benign neoplasm of rectum (principal); K21.9 Gastro-esophageal reflux disease without esophagitis; F32.A Depression, unspecified; F41.9 Anxiety disorder, unspecified
CPT/HCPCS: 45385; J2250; J3010; J7042

== ENCOUNTER 2024-08-13 06:53 | Emergency (ER) | payer OTHER, BC ==
[2024-08-13] MEDS: Sodium Chloride 0.9% 1,000 ML IV ONE ×2 (07:47→09:40)
[2024-08-13 07:53] LABS: HEMATOCRIT 47.8 % (40.0-54.0); HEMOGLOBIN 16.7 g/dL (14.0-18.0); MEAN CORPUSCULAR HEMOGLOBIN 30.9 pg (27.0-34.0); MEAN CORPUSCULAR HGB CONC 34.9 g/dL (33.0-35.0); MEAN CORPUSCULAR VOLUME 88.5 fL (80-100); PLATELET COUNT,PLT 345 10^3/uL (150-450); WHITE BLOOD CELL COUNT,WBC 9.5 10^3/uL (5.0-10.0)
[2024-08-13 07:55] LABS: BASOPHILS PERCENT AUTO 0.2 % (0.0-1.0); EOSINOPHILS PERCENT AUTO 0.8 % (1.0-3.0); LYMPHOCYTES PERCENT AUTO 21.2 % (20.5-50.1); MONOCYTES PERCENT AUTO 8.3 % (2-8); NEUTROPHILS PERCENT AUTO 69.5 % (42.2-75.2)
[2024-08-13] MEDS: Ondansetron 4 MG/2 ML SDV IVPUSH ONE (07:55)
[2024-08-13] MEDS: Famotidine 20 MG/2 ML SDV IVPUSH ONE (07:55)
[2024-08-13 08:17] LABS: A/G RATIO 0.61; ALANINE AMINOTRANSFERASE,ALT 48 U/L (16-63); ALKALINE PHOSPHATASE 101 U/L (46-116); ASPARTATE AMNIOTRANSFERASE,AST 24 U/L (15-37); BILIRUBIN TOTAL 0.4 mg/dL (0.2-1.0); BLOOD UREA NITROGEN,BUN 16 mg/dL (7-18); BUN/CREATININE RATIO 16.7 (No establ ref range); CALCIUM 9.1 mg/dL (8.5-10.1); CARBON DIOXIDE,CO2 24 mmol/L (21-32); CHLORIDE,CL 101 mmol/L (98-107); CREATININE 0.96 mg/dL (0.70-1.30); ESTIMATED GFR 100 mL/min (>=60); ETHANOL BLOOD MEDICAL < 3 mg/dL (0); GLUCOSE RANDOM 105 mg/dL (70-99); MAGNESIUM 2.1 mg/dL (1.8-2.4); PROTEIN TOTAL,TP 7.9 g/dL (6.4-8.2); SODIUM,NA 138 mmol/L (136-145)
[2024-08-13 08:49] LABS: LYMPHOCYTES PERCENT MAN 27 % (20-50); MONOCYTES PERCENT MAN 6 % (2-8); SEG NEUTROPHILS PERCENT MAN 67 % (42-75)
[2024-08-13 08:52] LABS: APPEARANCE,URINE CLEAR (CLEAR); BILIRUBIN,URINE MODERATE (NEGATIVE); COLOR,URINE YELLOW (YELLOW); GLUCOSE,URINE NEGATIVE (NEGATIVE); KETONES,URINE 80 (NEGATIVE); LEUKOCYTE ESTERASE,URINE NEGATIVE (NEGATIVE); NITRITE,URINE NEGATIVE (NEGATIVE); OCCULT BLOOD,URINE TRACE-INTACT (NEGATIVE); PH,URINE 6.5 (5.0-9.0); PROTEIN,URINE 30 (NEGATIVE)
[2024-08-13 09:15] LABS: BACTERIA,URINE FEW /HPF (0-FEW/HPF); EPITHELIAL CELLS,URINE FEW /HPF (NOT SEEN); MUCUS,URINE FEW /LPF (NOT SEEN); WBC,URINE 0-5 /HPF (0-5/HPF)
[2024-08-13 10:31] VITALS: BP 120/84; PULSE 84
== END 2024-08-13 10:30 | disposition home or self-care (01) ==
LOC: DL.ED 06:53
DX: E86.0 Dehydration (principal); J45.909 Unspecified asthma, uncomplicated; K21.9 Gastro-esophageal reflux disease without esophagitis; E66.9 Obesity, unspecified; F17.200 Nicotine dependence, unspecified, uncomplicated; Z90.89 Acquired absence of other organs; Z88.0 Allergy status to penicillin; Z88.8 Allergy status to other drugs, medicaments and biological substances; Z79.51 Long term (current) use of inhaled steroids; Z79.899 Other long term (current) drug therapy; Z68.34 Body mass index [BMI] 34.0-34.9, adult
CPT/HCPCS: 71045; 80053; 80307; 81001; 82947; 83735; 84484; 85025; 87428; 96361; 96374; 96375; 99285; J2405; J3490; J7030